=== PATIENT | female | born 1995 | race Caucasian/White ===

== ENCOUNTER → 2022-11-09 15:06 | Outpatient (BNVA) | payer OTHER, SELFPAY | PROVIDERS: Family Provider Family Medicine; Visit Provider Emergency Medicine | DX: J02.9 Acute pharyngitis, unspecified (principal); J02.0 Streptococcal pharyngitis | CPT/HCPCS: 87071; 87880 ==

== ENCOUNTER 2024-05-23 22:07 | Emergency (ER) | payer OTHER, SELFPAY ==
[2024-05-23 22:22] VITALS: BP 130/91; PULSE 105; RESP 16; TEMP 36.6; O2SAT 98
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
[2024-05-23] MEDS: ketorolac 10 mg Tablet PO (23:34)
--- NOTE | 2024-05-23 23:38 | PC.NURSE ---
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 Provider noticed.
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
== END 2024-05-24 01:37 | disposition home or self-care (01) ==
PROVIDERS: Emergency Provider Physician Assistant; Family Provider Family Medicine
DX: S63.501A Unspecified sprain of right wrist, initial encounter (principal); S16.1XXA Strain of muscle, fascia and tendon at neck level, initial encounter; S80.01XA Contusion of right knee, initial encounter; V87.7XXA Person injured in collision between other specified motor vehicles (traffic), initial encounter
CPT/HCPCS: 72040; 73110; 73562; 99284; J9999

== ENCOUNTER 2024-06-21 11:39 | Outpatient (CLI) | payer OTHER, SELFPAY ==
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
[2024-06-21 12:23] LABS: Basophils # 0.1 10^3/uL (0.0-0.1); Basophils % 0.9 %; Eosinophils # 0.3 10^3/uL (0.0-0.8); Eosinophils % 4.5 %; Hematocrit 40.8 % (36-47); Lymphocytes % 29.4 %; Mean Corpuscular HGB Conc 34.1 g/dL (30-55); Mean Corpuscular Hemoglobin 28.1 pg (27-33); Mean Corpuscular Volume 82.4 fl (85-98); Mean Platelet Volume 9.9 fL (7.4-10.4); Monocytes # 0.5 10^3/uL (0.2-0.9); Monocytes % 6.8 %; Neutrophils # 3.93 10^3/uL (1.8-7.7); Neutrophils % 58.3 %; Nucleated Red Blood Cells % 0 %; Platelet Count 279 10^3/cmm (157-399); Red Blood Count 4.95 10^6/uL (3.85-5.65); Red Cell Distribution Width 12.5 % (12.1-15.1); White Blood Count 6.74 10^3/uL (3.29-11.43)
[2024-06-21 12:50] LABS: Alanine Aminotransferase 25 U/L (0-33); Albumin Level 3.9 g/dL (3.5-5.2); Alkaline Phosphatase 72 U/L (35-105); Aspartate Amino Transferase 20 U/L (0-32); Blood Urea Nitrogen 13 mg/dL (6-20); Calcium 8.7 mg/dL (8.5-10.5); Carbon Dioxide 26 mmol/L (22-29); Chloride 105 mmol/L (98-107); Free T4 Free Thyroxine 1.15 ng/dL (0.82-1.77); Globulin 3.2 g/dL (1.3-4.6); Glomerular Filtration Rate 100.4 mL/min (90-130); Glucose 105 mg/dL (65-115); Osmolality Calculated 290 mOsm/kg (285-295); Sodium 140 mmol/L (136-145); T3 Free 3.3 PG/ML (2.0-4.4); Thyroid Stimulating Hormone 1.89 uIU/mL (0.27-4.20); Total Bilirubin 0.5 mg/dL (0.15-1.2); Total Protein 7.1 g/dL (6.6-8.7)
== END 2024-06-21 11:40 | disposition home or self-care (01) ==
DX: M47.896 Other spondylosis, lumbar region (principal); F41.9 Anxiety disorder, unspecified; M47.897 Other spondylosis, lumbosacral region
CPT/HCPCS: 36415; 72100; 80053; 84439; 84443; 84481; 85025

== ENCOUNTER 2024-08-07 14:21 | Outpatient (RCR) | payer OTHER, SELFPAY | END 2024-09-06 23:59 | disposition home or self-care (01) | LOC: SPT 14:21 | DX: M47.9 Spondylosis, unspecified (principal); M54.50 Low back pain, unspecified | CPT/HCPCS: 97110; 97161 ==

== ENCOUNTER 2024-09-07 06:00 | Outpatient (RCR) | payer OTHER, SELFPAY | END 2024-10-07 23:59 | disposition home or self-care (01) | LOC: SPT 06:00 | DX: M47.9 Spondylosis, unspecified (principal); M54.50 Low back pain, unspecified | CPT/HCPCS: 97110 ==